=== PATIENT | female | born 1995 | race Caucasian/White ===

== ENCOUNTER 2024-01-07 08:30 | Outpatient (RCR) | payer OTHER, MEDICAID, SELFPAY ==
--- NOTE | 2023-11-16 11:58 | OPREHPOC ---
Outpatient Therapy Plan of Care This is a Multidisciplinary Plan of Care that may contain components documented by all disciplines (PT, OT, and ST.) PT Problem 1 PT Problem #1 Knowledge Deficit PT Goal 1 Goal Patient will be independent with HEP Target Visit 4 PT Problem 2 PT Problem #2 Impaired Range of Motion PT Goal 1 Goal Improve cervical active flexion to 40 degrees to reduce upper trapezius tension Target Visit 8 PT Problem 3 PT Problem #3 Impaired Strength PT Goal 1 Goal Improve L shoulder girdle strength to 5/5 to improve shoulder stability Target Visit 8 PT Goal 2 Goal Improve betty periscapular strength to 4+/5 to improve postural control and shoulder stability Target Visit 8 PT Problem 4 PT Problem #4 Pain PT Goal 1 Goal Patient will report 90% improvement in frequency and intensity of radicular symptoms Target Visit 8
--- NOTE | 2023-11-16 11:59 | PTOPEVAL1 ---
Assessment and note entered by Kobi Estrada, PT Evaluation Information Assessment Status Evaluation ICD-10 Condition Codes (PT) Cervicalgia M54.2,M25.512 Onset June 2023 Subjective Information Reports that pain started in June with stiffness in neck and pain down shoulder. When it is good she is having numbness into he shoulder. When pain was bad she was getting pain all the way down into her 4th and 5th digits. She is R handed. She woke up with pain one day is unsure of what may have caused. She is currently on a break from school which is likely helping with pain. Reported Pain Level Pain Score 2: Self Report Assessment PT Clinical Summary Patient presents with signs and symptoms consistent with cervical radiculopathy. Some weakness in present in left shoulder. Will benefit form skilled therapy to address cervical ROM, left rotator cuff strengthening, and postural reinforcement. Plan of Care Interventions Electrical Stimulation,Hot Pack/Cold Pack,Manual Therapy,Neuro Re-education,Therapeutic Activities, Therapeutic Exercise Other Interventions Dry Needling PT Services Indicated Yes Treatment Frequency and 1-2x/week for 8 visits Duration These treatments will address the objective and functional deficits as defined above. The patient will be advanced safely and appropriately in order for the patient to progress towards his/her prior level of function. Additional exercises will be introduced and as well as a comprehensive home exercise program upon discharge, if needed, ?to ensure carryover of functional gains achieved in the clinic. This treatment plan has been reviewed and agreement upon by the patient.
--- NOTE | 2024-01-07 09:35 | OPREHPOC ---
Outpatient Therapy Plan of Care This is a Multidisciplinary Plan of Care that may contain components documented by all disciplines (PT, OT, and ST.) PT Problem 1 PT Problem #1 Knowledge Deficit PT Goal 1 Goal / Goal Update Patient will be independent with HEP Target Visit 4 Progress Met PT Problem 2 PT Problem #2 Impaired Range of Motion PT Goal 1 Goal / Goal Update Improve cervical active flexion to 40 degrees to reduce upper trapezius tension Target Visit 8 Progress Met PT Problem 3 PT Problem #3 Impaired Strength PT Goal 1 Goal / Goal Update Improve L shoulder girdle strength to 5/5 to improve shoulder stability Target Visit 8 Progress Met PT Goal 2 Goal / Goal Update Improve betty periscapular strength to 4+/5 to improve postural control and shoulder stability Target Visit 8 Progress Met PT Problem 4 PT Problem #4 Pain PT Goal 1 Goal / Goal Update Patient will report 90% improvement in frequency and intensity of radicular symptoms Target Visit 8 Progress Met
--- NOTE | 2024-01-07 09:35 | PTOPDC ---
Assessment and note entered by Kobi Estrada, PT Evaluation Information Assessment Status Discharge ICD-10 Condition Codes (PT) Cervicalgia M54.2,M25.512 Onset June 2023 Subjective Information Reports that overall she is doing a lot better. She has seen improvment in both frequency and intensity of radicular symptoms. 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 Reported Pain Level Pain Score 2: Self Report Assessment PT Clinical Summary Patient met all goals for therapy at this time and is suitable for discharge to [facility] At this time. We reissued HEP to include all active exercises for intermodal dispatcher postural control and educated in group home plan for injury prevention and continued improvement. Plan of Care PT Services Indicated D/C to HEP
== END 2024-01-08 15:44 | disposition home or self-care (01) ==
LOC: ANHPT 08:30
DX: M54.2 Cervicalgia (principal); M25.512 Pain in left shoulder
CPT/HCPCS: 97110; 97140; 97161; 97530